=== PATIENT | female | born 1990 | race Two or more races ===

== ENCOUNTER 2021-08-06 14:21 | Observation (INO) | payer MEDICAID ==
[2021-08-06 16:08] LABS: Hematocrit 35.7 % (36.0-46.0); Hemoglobin 12.3 g/dL (12.2-16.2); Mean Corpuscular Hemoglobin 28.8 pg (28.0-32.0); Mean Corpuscular Hgb Conc. 34.5 g/dL (32.0-36.0); Mean Corpuscular Volume 83.4 fL (80.0-100.0); Red Blood Cells 4.27 10^6/uL (4.0-5.20); Red Cell Distribution Width 13.8 % (11.8-14.3); White Blood Cell 9.4 10^3/uL (4.4-10.8)
[2021-08-06 16:16] LABS: Basophils % (manual) 0 (0.0-2.0); Blast Cells 0; Eosinophils % (manual) 0 (0-7); Metamyelocytes % 0; Myelocytes % 0; Promyelocytes % 0; Reactive Lymphocytes 0
[2021-08-06 16:20] LABS: Urine Bacteria NONE SEEN /hpf (None Seen); Urine Blood Negative /uL (Negative); Urine Mucus FEW (None Seen); Urine Specific Gravity 1.019 (1.001-1.035); Urine WBC 3 /hpf (0 - 5)
[2021-08-06 16:28] LABS: Albumin 2.5 g/dL (3.4-5.0); Calcium 8.7 mg/dL (8.5-10.1); Potassium 3.8 mmol/L (3.5-5.1)
[2021-08-06 16:30] LABS: Protein, Urine 18.3 mg/dL (0.0-11.9)
[2021-08-06 16:31] LABS: BUN/Creatinine Ratio 9.8; Bilirubin, Total 0.1 mg/dL (0.2-1.0); Total Protein 6.9 g/dL (6.4-8.2); Uric Acid 3.5 mg/dL (2.6-6.0)
[2021-08-06 16:40] LABS: INR 0.91 (0.9-1.15); Partial Thromboplastin Time 25.4 sec (23.6-33.0)
[2021-08-06] MEDS ORDERED: PREN27TA7 OR (17:01)
[2021-08-06 17:50] LABS: Band Neutrophils % (manual) 2; Lymphocytes % (manual) 13 (10.0-50.0); Monocytes % (manual) 6 (0-12)
== END 2021-08-06 17:20 | disposition home or self-care (01) ==
LOC: LDRP 14:21
PROVIDERS: ADMIT Obstetrics & Gynecology Obstetrics; ATTEND Obstetrics & Gynecology Obstetrics
DX: O13.3 Gestational [pregnancy-induced] hypertension without significant proteinuria, third trimester (principal); Z3A.31 31 weeks gestation of pregnancy
CPT/HCPCS: 36415; 59025; 80053; 81001; 81002; 82570; 84156; 84550; 85007; 85027; 85610; 85730; 94760; G0378

== ENCOUNTER 2021-08-20 14:05 | Emergency (ER) | payer MEDICAID ==
[~2021-08-20] VITALS: Ht 157.5 cm; Wt 77.1 kg
[~2021-08-20 14:05] MED LIST: PREN27TA7 OR
[2021-08-20 14:16] VITALS: BP 127/79
== END 2021-08-20 16:47 | disposition left against medical advice (07) ==
LOC: ER 14:05
DX: O26.893 Other specified pregnancy related conditions, third trimester (principal); J02.9 Acute pharyngitis, unspecified; R50.9 Fever, unspecified; Z3A.01 Less than 8 weeks gestation of pregnancy; Z3A.33 33 weeks gestation of pregnancy

== ENCOUNTER 2024-03-21 10:09 | Emergency (ER) | payer MEDICAID ==
[~2024-03-21] VITALS: Ht 152.4 cm; Wt 79.5 kg
[2024-03-21] MEDS ORDERED: ALBUAER3 IN (10:32)
[2024-03-21] MEDS ORDERED: METH4PAK PO (10:32)
[2024-03-21] MEDS ORDERED: AZIT1POW PO (10:32)
--- NOTE | 2024-03-21 10:34 | ED.PDOC ---
History of Present Illness HPI Comments 33-year-old female who comes with chief complaint of cough that was productive in nature. The patient states that there has been some yellow phlegm since the 13 of March. She has also had a fever somewhat off and on. There has been some mild chills. Upon arrival, the patient has normal vital signs but is still coughing. The patient also has some other family members at home who are sick. Chief Complaint: Flu like Time Seen by MD: 10:24 Reviewed Notes: Nurses Notes, Medications, Allergies (No allergies to medications) Allergies: Coded Allergies: NO KNOWN ALLERGIES (Unverified , 08/20/21) Home Meds Active Scripts Albuterol Sulfate (VENTOLIN MDI) 90 Mcg Ih, 90 MCG IN Q8HP PRN for 5 Days, #1 I NH Prov:SARA KIM MD 03/21/24 Methylprednisolone (Medrol Dosepak) 4 Mg Willie, 4 MG PO UD, #21 TAB UAD Prov:SARA KIM MD 03/21/24 Azithromycin (Zithromax) 1 Gm Pow, 1 PACK PO ONCE, #1 PACK Prov:SARA KIM MD 03/21/24 Reported Medications Vit W/ Ferrous Fumara () 1 Tab Tab, 1 TAB OR, TAB 08/06/21 Information Source: Patient Mode of Arrival: Ambulatory Severity: Mild Timing: Days Duration: Since onset Prehospital treatment: None Associated signs and symptoms Associated fever with a productive cough Past Medical History PAST MEDICAL HISTORY: HTN Surgical History: Denies all surgeries COUNTY AGENT History: No Pertinent COUNTY AGENT History Family History Family History: No family hx of Cancer, No family hx of DM, No family hx of Heart marie Social History Smoker: Non-Smoker Alcohol: Denies ETOH Use Drugs: Denies Drug Use Lives In: Home Constitutional: reports: chills, fever; denies: diaphoresis, fatigue, malaise, sweats, weakness, others EENTM: denies: blurred vision, double vision, ear bleeding, ear discharge, ear drainage, ear pain, ear ringing, eye pain, eye redness, hearing loss, mouth pain, mouth swelling, nasal discharge, nose bleeding, nose congestion, nose pain, photophobia, tearing, throat pain, throat swelling, voice changes, others Respiratory: reports: cough; denies: hemoptysis, orthopnea, SOB at rest, shortness of breath, SOB with excertion, stridor, wheezing, others Cardiovascular: denies: chest pain, dizzy spells, diaphoresis, Dyspnea on exertion, edema, irregular heart beat, left arm pain, lightheadedness, palpitations, PND, syncope, others Gastrointestinal: denies: abdomen distended, abdominal pain, blood streaked bowels, constipated, diarrhea, dysphagia, difficulty swallowing, hematemesis, melena, nausea, poor appetite, poor fluid intake, rectal bleeding, rectal pain, vomiting, others Genitourinary: denies: abnormal vagina bleeding, burning, dyspareunia, dysuria, flank pain, frequency, hematuria, incontinence, pain, , vagina discharge, urgency, others Neurological: denies: dizziness, fainting, headache, left sided numbness, left sided weakness, numbness, paresthesia, pre-existing deficit, right sided numbness, right sided weakness, seizure, speech problems, tingling, tremors, weakness, others Musculoskeletal: denies: back pain, gout, joint pain, joint swelling, muscle pain, muscle stiffness, neck pain, others Integumetry: denies: bruises, change in color, change in hair/nails, dryness, laceration, lesions, lumps, rash, wounds, others Allergic/Immunocompromised: denies: Difficulty Healing, Frequent Infections, Hives, Itching, others Hematologic/Lymphatic: denies: anemia, blood clots, easy bleeding, easy bruising, swollen glands, others Endocrine: denies: excessive hunger, excessive sweating, excessive thirst, excessive urination, flushing, intolerance to cold, intolerance to heat, unexplained weight gain, unexplained weight loss, others Psychiatric: denies: anxiety, bipolar disorder, depression, hopeless, panic disorder, schizophrenia, sleepless, suicidal, others Physical Exam General Appearance: No Apparent Distress HEENT: Normal ENT Inspection, Pharynx Normal, TMs Normal Neck: Full Range of Motion, Non-Tender, Normal, Normal Inspection Respiratory: Chest Non-Tender, Lungs Clear, No Accessory Muscle Use, No Respiratory Distress, Normal Breath Sounds Cardiovascular: No Edema, No JVD, No Murmur, No Gallop, Normal Peripheral Pulses, Regular Rate/Rhythm Breast Exam: Deferred Gastrointestinal: No Organomegaly, Non Tender, No Pulsatile Mass, Normal Bowel Sounds, Soft Genitalia: Deferred Pelvic: Deferred Rectal: Deferred Extremities: No calf tenderness, Normal capillary refill, Normal inspection, Normal range of motion, Non-tender, No pedal edema Musculoskeletal : Apperance: Normal Neurologic: Alert, general technician II-XII nml as Tested, No Motor Deficits, Normal Affect, Normal Mood, No Sensory Deficits Cerebellar Function: Normal Reflexes: Normal Skin: Dry, Normal Color, Warm Lymphatic: No Adenopathy Was a procedure done? Was a procedure done?: No Differential Dx Considerations may include: Bronchitis, URI, influenza X-Ray, Labs, Meds, VS Vital Signs Date Time Temp Pulse Resp B/P (MAP) Pulse Ox O2 Delivery O2 Flow Rate FiO2 03/21/24 10:30 98.2 89 18 138/101 (113) 98 The patient is being discharged with a diagnosis of acute bronchitis The patient has eloped from the department prior to getting the x-ray done. The patient will follow up with the primary care doctor We did send in a prescription for the patient Images Reviewed?: Images reviewed and evaluated by me Time of 1ST Reevaluation: 10:34 Reevaluation 1ST: Unchanged Patient Education/Counseling: Diagnosis, Treatment, Prognosis, Need For Follow Up Family Education/Counseling: No Family Present Departure 1 Departure Time of Disposition: 10:34 Impression: Primary Impression: Acute bronchitis Qualified Codes: J20.9 - Acute bronchitis, unspecified Disposition: HOME / SELF CARE / HOMELESS Condition: Fair e-Prescriptions Albuterol Sulfate (VENTOLIN MDI) 90 Mcg Ih 90 MCG IN Q8HP PRN for 5 Days, #1 INH Prov: SARA KIM MD 03/21/24 Methylprednisolone (Medrol Dosepak) 4 Mg Willie 4 MG PO UD, #21 TAB UAD Prov: SARA KIM MD 03/21/24 Azithromycin (Zithromax) 1 Gm Pow 1 PACK PO ONCE, #1 PACK Prov: SARA KIM MD 03/21/24 Discharged With: Self Critical Care Note Critical Care Time?: No Stability Stability form required: No Heart Score Heart Score: Heart Score Response (Comments) Value History N/A 0 EKG N/A 0 Age N/A 0 Risk Factors N/A 0 Troponin N/A 0 Total 0 SARA KIM MD Mar 21, 2024 10:34
[2024-03-21 12:03] VITALS: BP 132/72; PULSE 74; RESP 16; TEMP 98.2; O2SAT 98
== END 2024-03-21 12:06 | disposition home or self-care (01) ==
LOC: ER 10:09
DX: J20.9 Acute bronchitis, unspecified (principal); I10 Essential (primary) hypertension; Z79.899 Other long term (current) drug therapy

== ENCOUNTER 2024-08-23 10:23 | Observation (INO) | payer MEDICAID ==
[~2024-08-23] VITALS: Ht 162.6 cm; Wt 82.1 kg
[~2024-08-23 10:23] MED LIST changes: +ALBUAER3 IN; +AZIT1POW PO; +METH4PAK PO
--- NOTE | 2024-08-23 11:09 | DVH ---
LIMITED OB ULTRASOUND > 14 WKS: HISTORY: Chronic HTN TECHNIQUE: Multiple real-time grayscale images of the gravid uterus with duplex Doppler color flow an d M-mode spectral analysis. TRANSDUCER: Transabdominal FINDINGS: Cephalic presentation Fundal placenta. Heart rate: 149 beats per minute RIKKI 12.35. IMPRESSION: as above
[2024-08-23] MEDS: TERBUTALINE SULFATE 1 MG/ML 1ML VIAL SC SCH (12:00)
--- NOTE | 2024-08-23 12:14 | DVH ---
LIMITED OB ULTRASOUND > 14 WKS: HISTORY: cervical length only TECHNIQUE: Multiple real-time grayscale images of the gravid uterus to evaluate cervix length. TRANSDUCER: Transvaginal. FINDINGS/IMPRESSION: Cervix appears closed and measures 4.1 cm at this time. Refer to recent prior report for further eval uation.
--- NOTE | 2024-08-23 23:22 | DVHDS2 ---
Discharge Summary Date of Admission Aug 23, 2024 at 10:32 Date of Discharge: Aug 23, 2024 Admitting Diagnosis Thirty and 4 7th weeks chronic hypertension Brief Hx & Hospital Course: NST performed reassuring heart tones Condition at Discharge: Good Final Diagnosis/Problems List Chronic hypertension 30+ weeks Discharge Disposition: Home Discharge Instruct/Medications Diet: Regular Activity: Light activity Activity comment: Kick counseling precautions Follow Up/Referral: As scheduled Discharge Statement: "Patient was advised to return to the ER or call 911 if any headaches, dizziness, shortness of breath, chest pain, abdominal pain, bleeding, fevers, or worsening of medical condition. Patient was counseled about treatment plan, medications, possible side effects, patientverbalized understanding. All questions were answered to the best of my ability. This discharge took greater then 30 minutes in planning, reviewing documentation, counseling the patient, and discussing with other team members." ASSESSMENT ASSESSMENT Assessment Visit Coding OBGYN Date of Service: Aug 23, 2024 Billing Provider: BERTHA DUNCAN DO HOT CAR OPERATOR Common Visit Codes: 49135-JVV/OBS SAME DATE (LOW), 71593-AZH/OBS SAME DATE (MOD), 04060-DWZ/OBS SAME DATE (HIGH) HOT CAR OPERATOR Procedure Codes: 69909-17- NON-STRESS TEST BERTHA DUNCAN DO Aug 23, 2024 23:22
== END 2024-08-23 12:44 | disposition home or self-care (01) ==
LOC: LDRP 10:23 → UNDOADMOB 10:23 → LDRP 10:32 → UNDODISOB 12:44
PROVIDERS: ADMIT Obstetrics & Gynecology; ATTEND Obstetrics & Gynecology
DX: O13.3 Gestational [pregnancy-induced] hypertension without significant proteinuria, third trimester (principal); O26.893 Other specified pregnancy related conditions, third trimester; R51.9 Headache, unspecified; R11.0 Nausea; Z3A.30 30 weeks gestation of pregnancy; Z79.899 Other long term (current) drug therapy
CPT/HCPCS: 59025; 76815; 81002; 94760; 96372; G0378; J3105

== ENCOUNTER 2024-08-26 13:04 | Observation (INO) | payer MEDICAID ==
[~2024-08-26] VITALS: Ht 154.9 cm; Wt 82.1 kg
[2024-08-26] MEDS: TERBUTALINE SULFATE 1 MG/ML 1ML VIAL SC SCH (17:51)
[2024-08-26] MEDS ORDERED: NIFE10CA52 PO (20:02)
--- NOTE | 2024-08-31 14:31 | DVHDS2 ---
Physician Discharge Progress N Final Diagnosis: chtn 31 wks Operations or Procedures: Operations or Procedures nst reactive reviewed ,sono Condition on Discharge: Good Disposition: Home Discharge Instructions: Diet: Regular Activity: Light activity Medications: na Follow Up Care: Specialist: 2d Discharge Statement: "Patient was advised to return to the ER or call 911 if any headaches, dizziness, shortness of breath, chest pain, abdominal pain, bleeding, fevers, or worsening of medical condition. Patient was counseled about treatment plan, medications, possible side effects, patientverbalized understanding. All questions were answered to the best of my ability. This discharge took greater then 30 minutes in planning, reviewing documentation, counseling the patient, and discussing with other team members." Visit Coding OBGYN Date of Service: Aug 26, 2024 Billing Provider: REAGAN HARTLEY DO ELECTRONIC INTELLIGENCE OFFICER Common Visit Codes: 54139-RQILMUU OBS CARE (HIGH) ELECTRONIC INTELLIGENCE OFFICER Procedure Codes: 98103-60- NON-STRESS TEST REAGAN HARTLEY DO Aug 31, 2024 14:31
== END 2024-08-26 20:09 | disposition home or self-care (01) ==
LOC: LDRP 16:10
PROVIDERS: ADMIT Obstetrics & Gynecology; ATTEND Obstetrics & Gynecology
DX: O13.3 Gestational [pregnancy-induced] hypertension without significant proteinuria, third trimester (principal); Z3A.30 30 weeks gestation of pregnancy; Z79.899 Other long term (current) drug therapy; Z98.890 Other specified postprocedural states
CPT/HCPCS: 59025; 81002; 94760; 96372; G0378; J3105

== ENCOUNTER 2024-08-30 13:59 | Observation (INO) | payer MEDICAID ==
[~2024-08-30] VITALS: Ht 160 cm; Wt 82.1 kg
[~2024-08-30 13:59] MED LIST changes: +NIFE10CA52 PO
[2024-08-30 17:09] LABS: Basophils # (auto) 0 10 ^3/uL (0-0.2); Basophils % (auto) 0.1 % (0.0-2.0); Eosinophils # (auto) 0.1 10 ^3/uL (0-0.8); Eosinophils % (auto) 1.5 % (0.0-7.0); Hematocrit 35.7 % (36.0-46.0); Hemoglobin 12.3 g/dL (12.2-16.2); Lymphocytes % (auto) 24.2 % (10.0-50.0); Mean Corpuscular Hemoglobin 28.5 pg (28.0-32.0); Mean Corpuscular Hgb Conc. 34.5 g/dL (32.0-36.0); Mean Corpuscular Volume 82.5 fL (80.0-100.0); Monocytes # (auto) 0.6 10 ^3/uL (0-1.3); Neutrophils # (auto) 5.4 10 ^3/uL (1.6-8.6); Neutrophils % (auto) 66.2 % (37.0-80.0); Platelet Count (auto) 287 10^3/uL (140-450); Red Blood Cells 4.33 10^6/uL (4.0-5.20); Red Cell Distribution Width 14.1 % (11.8-14.3); White Blood Cell 8.1 10^3/uL (4.4-10.8)
[2024-08-30 17:23] LABS: INR 0.9 (0.9-1.15); Partial Thromboplastin Time 24.9 SEC (24.5-34.5); Prothrombin Time 9.6 sec (9.3-11.8)
[2024-08-30 17:27] LABS: Alanine Aminotransferase 16 U/L (7-40); Albumin 4.1 g/dL (3.2-4.8); Anion Gap 10 (5-15); Aspartate Aminotransferase 21 U/L (<34); Calcium 9.1 mg/dL (8.7-10.4); Carbon Dioxide 22 mmol/L (20-31); Chloride 106 mmol/L (98-107); Glucose 98 mg/dL (74-106); Potassium 3.9 mmol/L (3.5-5.1); Sodium 138 mmol/L (136-145); Total Protein 6.6 g/dL (5.7-8.2); Uric Acid 3.7 mg/dL (3.1-7.8)
[2024-08-30] MEDS: BETAMETHASONE ACET (30mg/5ml) 5ml Vial 6mg/ml IM ONE (17:34)
[2024-08-30 17:38] LABS: Urine Bacteria FEW /hpf (None Seen); Urine Blood Negative /uL (Negative); Urine Clarity Clear (Clear); Urine Color Light-Yellow (Yellow); Urine Protein, UAD Negative (Negative); Urine Specific Gravity 1.009 (1.001-1.035); Urine Squamous Epithelial Cell FEW /hpf (<5); Urine Urobilinogen Normal (Negative); Urine WBC 3 /HPF (0-5); Urine pH 6.5 (5.0-9.0)
[2024-08-30 17:40] LABS: Alkaline Phosphatase 120 U/L (46-116); Bilirubin, Total 0.3 mg/dL (0.2-1.0); Blood Urea Nitrogen < 5 mg/dL (9-23)
[2024-08-30 17:41] LABS: Creatinine, Urine 51.37 mg/dL (30.0-125.0); Urine Protein/Creatinine Ratio 0.12
[2024-08-30] MEDS ORDERED: NIFE10CA52 PO (17:48)
[2024-08-30 17:51] LABS: Protein, Urine < 6.0 mg/dL (1-14)
[2024-08-30] MEDS ORDERED: TERBUTALINE SULFATE 1 MG/ML 1ML VIAL SC ONE (18:15)
--- NOTE | 2024-08-30 18:46 | DVH ---
LIMITED OB ULTRASOUND > 14 WKS: HISTORY: labor TECHNIQUE: Multiple real-time grayscale images of the gravid uterus with duplex Doppler color flow an d M-mode spectral analysis. TRANSDUCER: Transabdominal COMPARISON: US OBSTERICAL LIMITED on DOS: 08/23/24, US OBSTERICAL LIMITED on DOS: 08/23/24 FINDINGS/IMPRESSION: Cervix is closed and measures 4.3 cm Cephalic Presentation Fundal Placenta without previa or abruption.
[2024-08-30] MEDS: TERBUTALINE SULFATE 1 MG/ML 1ML VIAL SC SCH (18:56)
--- NOTE | 2024-08-31 06:19 | DVHDS2 ---
Discharge Summary Date of Admission Aug 30, 2024 at 16:20 Date of Discharge: Aug 30, 2024 Admitting Diagnosis 31 wks nst Labs/Diagnostic Data: Laboratory Results Test 08/30/24 16:47 08/30/24 16:30 08/30/24 16:28 White Blood Count 8.1 10^3/uL (4.4-10.8) Red Blood Count 4.33 10^6/uL (4.0-5.20) Hemoglobin 12.3 g/dL (12.2-16.2) Hematocrit 35.7 % (36.0-46.0) Mean Corpuscular Volume 82.5 fL (80.0-100.0) Mean Corpuscular Hemoglobin 28.5 pg (28.0-32.0) Mean Corpuscular Hemoglobin Concent 34.5 g/dL (32.0-36.0) Red Cell Distribution Width 14.1 % (11.8-14.3) Platelet Count 287 10^3/uL (140-450) Mean Platelet Volume 7.3 fL (6.9-10.8) Neutrophils (%) (Auto) 66.2 % (37.0-80.0) Lymphocytes (%) (Auto) 24.2 % (10.0-50.0) Monocytes (%) (Auto) 8.0 % (0.0-12.0) Eosinophils (%) (Auto) 1.5 % (0.0-7.0) Basophils (%) (Auto) 0.1 % (0.0-2.0) Neutrophils # (Auto) 5.4 10 ^3/uL (1.6-8.6) Lymphocytes # (Auto) 2.0 10 ^3/uL (0.4-5.4) Monocytes # (Auto) 0.6 10 ^3/uL (0-1.3) Eosinophils # (Auto) 0.1 10 ^3/uL (0-0.8) Basophils # (Auto) 0 10 ^3/uL (0-0.2) Nucleated Red Blood Cells 0.0 % Prothrombin Time 9.6 sec (9.3-11.8) Prothrombin Time INR 0.90 (0.9-1.15) Activated Partial Thromboplast Time 24.9 SEC (24.5-34.5) Sodium Level 138 mmol/L (136-145) Potassium Level 3.9 mmol/L (3.5-5.1) Chloride Level 106 mmol/L (98-107) Carbon Dioxide Level 22 mmol/L (20-31) Anion Gap 10 (5-15) Blood Urea Nitrogen < 5 mg/dL (9-23) Creatinine 0.50 mg/dL (0.550-1.02) Glomerular Filtration Rate Calc 127 mL/min (>90) BUN/Creatinine Ratio 10.0 (10.0-20.0) Serum Glucose 98 mg/dL (74-106) Uric Acid 3.7 mg/dL (3.1-7.8) Calcium Level 9.1 mg/dL (8.7-10.4) Total Bilirubin 0.3 mg/dL (0.2-1.0) Aspartate Amino Transferase (AST) 21 U/L (<34) Alanine Aminotransferase (ALT) 16 U/L (7-40) Alkaline Phosphatase 120 U/L (46-116) Total Protein 6.6 g/dL (5.7-8.2) Albumin 4.1 g/dL (3.2-4.8) Urine Color Light-yellow (Yellow) Urine Clarity Clear (Clear) Urine pH 6.5 (5.0-9.0) Urine Specific Loman 1.009 (1.001-1.035) Urine Protein Negative (Negative) Urine Ketones Trace (Negative) Urine Blood Negative /uL (Negative) Urine Nitrite Negative (Negative) Urine Bilirubin Negative (Negative) Urine Urobilinogen Normal mg/dL (Negative) Urine Leukocyte Esterase Negative /uL (Negative) Urine RBC 1 /hpf (0 - 4) Urine Microscopic WBC 3 /HPF (0-5) Urine Squamous Epithelial Cells Few /hpf (<5) Urine Bacteria Few /hpf (None Seen) Urine Glucose Normal mg/dL (Normal) Urine Creatinine 51.37 mg/dL (30.0-125.0) Urine Protein/Creatinine Ratio 0.12 Urine Total Protein < 6.0 mg/dL (1-14) Other Laboratory Tests 08/30/24 16:47 Brief Hx & Hospital Course: 31 weeks rule out labor Condition at Discharge: Good Final Diagnosis/Problems List reasuring fht no complications Discharge Disposition: Home Discharge Instruct/Medications Diet: Regular Diet comment: Monitor sodium intake Activity: Light activity Activity comment: kick counts labor precautions Follow Up/Referral: as scheduled Discharge Statement: "Patient was advised to return to the ER or call 911 if any headaches, dizziness, shortness of breath, chest pain, abdominal pain, bleeding, fevers, or worsening of medical condition. Patient was counseled about treatment plan, medications, possible side effects, patientverbalized understanding. All questions were answered to the best of my ability. This discharge took greater then 30 minutes in planning, reviewing documentation, counseling the patient, and discussing with other team members." ASSESSMENT ASSESSMENT Assessment Visit Coding OBGYN Date of Service: Aug 30, 2024 Billing Provider: BERTHA DUNCAN DO DYNAMOMETER REPAIRER Common Visit Codes: 72896-SUT/OBS SAME DATE (LOW), 31490-ADZ/OBS SAME DATE (MOD), 49810-IPD/OBS SAME DATE (HIGH) DYNAMOMETER REPAIRER Procedure Codes: 20806-48- NON-STRESS TEST BERTHA DUNCAN DO Aug 31, 2024 06:19
== END 2024-08-30 21:24 | disposition home or self-care (01) ==
LOC: LDRP 16:20 → UNDOADMOB 16:20 → LDRP 16:31 → UNDODISOB 21:24
PROVIDERS: ADMIT Obstetrics & Gynecology; ATTEND Obstetrics & Gynecology
DX: O60.03 Preterm labor without delivery, third trimester (principal); O13.3 Gestational [pregnancy-induced] hypertension without significant proteinuria, third trimester; Z98.890 Other specified postprocedural states; Z79.899 Other long term (current) drug therapy; Z3A.31 31 weeks gestation of pregnancy
CPT/HCPCS: 36415; 59025; 76815; 80053; 81001; 81002; 82570; 84156; 84550; 85025; 85610; 85730; 94762; 96372; G0378; J0702; J3105

== ENCOUNTER 2024-08-31 16:40 | Observation (INO) | payer MEDICAID ==
[~2024-08-31 16:40] MED LIST changes: -ALBUAER3 IN; -AZIT1POW PO; -METH4PAK PO
[2024-08-31] MEDS: BETAMETHASONE ACET (30mg/5ml) 5ml Vial 6mg/ml IM ONE (17:25)
--- NOTE | 2024-08-31 18:04 | DVHDS2 ---
Physician Discharge Progress N Final Diagnosis: testing for CHTN/PTL Operations or Procedures: Operations or Procedures 33yo IUP@31.5wks VSS NST reactive (last continuous 20 minutes) No UCs on TOCO Second dose of betamethasone 12mg IM given FKC/PTL precautions reviewed. Dr. Vaughan consulted, agrees with POC. Condition on Discharge: Stable Disposition: Home Discharge Instructions: Diet: Regular Activity: See Comment Activity comment: pelvic rest Medications: see med list Follow Up Care: Specialist: f/u in 3 days Discharge Statement: "Patient was advised to return to the ER or call 911 if any headaches, dizziness, shortness of breath, chest pain, abdominal pain, bleeding, fevers, or worsening of medical condition. Patient was counseled about treatment plan, medications, possible side effects, patientverbalized understanding. All questions were answered to the best of my ability. This discharge took greater then 30 minutes in planning, reviewing documentation, counseling the patient, and discussing with other team members." Visit Coding OBGYN Date of Service: Aug 31, 2024 Billing Provider: KEYSHAWN KING CNM HIGH SCHOOL ASSISTANT PRINCIPAL Common Visit Codes: 27729-FCRTWJJ OBS CARE (HIGH) HIGH SCHOOL ASSISTANT PRINCIPAL Procedure Codes: 21668-23- NON-STRESS TEST KEYSHAWN KING CNM Aug 31, 2024 18:04
== END 2024-08-31 19:47 | disposition home or self-care (01) ==
LOC: LDRP 16:40
PROVIDERS: ADMIT Obstetrics & Gynecology; ATTEND Obstetrics & Gynecology
DX: O13.3 Gestational [pregnancy-induced] hypertension without significant proteinuria, third trimester (principal); O60.03 Preterm labor without delivery, third trimester; Z98.890 Other specified postprocedural states; Z79.899 Other long term (current) drug therapy; Z3A.31 31 weeks gestation of pregnancy
CPT/HCPCS: 59025; 81002; 94762; 96372; G0378

== ENCOUNTER 2024-09-03 14:09 | Observation (INO) | payer MEDICAID ==
--- NOTE | 2024-09-03 17:40 | DVH ---
BIOPHYSICAL PROFILE HISTORY: CHTN PTL TECHNIQUE: Multiple real-time grayscale sonographic images through the gravid uterus of the fetus wi th duplex Doppler color flow. FINDINGS: BIOPHYSICAL PROFILE: breathing score: 2 movement score: 2 tone score: 2 Quantitative RIKKI score: 2 Total score: 8 out of 8 The lie is cephalic. Placenta posteriorly positioned. RIKKI 17.2 cm. heart rate of 136 be ats per minute. IMPRESSION: Biophysical profile score: 8 out of 8
--- NOTE | 2024-09-08 07:25 | DVHDS2 ---
Physician Discharge Progress N Final Diagnosis: chtn,ptl 32 wks Operations or Procedures: Operations or Procedures nst reactive reviwed,sono Condition on Discharge: Good Disposition: Home Discharge Instructions: Diet: Regular Activity: No Restrictions, As Tolerated Medications: na Follow Up Care: Specialist: 1d Discharge Statement: "Patient was advised to return to the ER or call 911 if any headaches, dizziness, shortness of breath, chest pain, abdominal pain, bleeding, fevers, or worsening of medical condition. Patient was counseled about treatment plan, medications, possible side effects, patientverbalized understanding. All questions were answered to the best of my ability. This discharge took greater then 30 minutes in planning, reviewing docu mentation, counseling the patient, and discussing with other team members." Visit Coding OBGYN Date of Service: Sep 03, 2024 Billing Provider: REAGAN HARTLEY DO DIRECTOR INDEPENDENT Common Visit Codes: 16973-FAQQUBJ OBS CARE (HIGH) DIRECTOR INDEPENDENT Procedure Codes: 61822-14- NON-STRESS TEST REAGAN HARTLEY DO Sep 08, 2024 07:25
== END 2024-09-03 18:23 | disposition home or self-care (01) ==
LOC: LDRP 16:45
PROVIDERS: ADMIT Obstetrics & Gynecology; ATTEND Obstetrics & Gynecology
DX: O13.3 Gestational [pregnancy-induced] hypertension without significant proteinuria, third trimester (principal); O60.03 Preterm labor without delivery, third trimester; Z3A.32 32 weeks gestation of pregnancy; Z79.899 Other long term (current) drug therapy; Z98.890 Other specified postprocedural states
CPT/HCPCS: 59025; 76819; 81002; 94760; G0378

== ENCOUNTER 2024-09-11 07:53 | Observation (INO) | payer MEDICAID ==
[~2024-09-11 07:53] MED LIST changes: +PREN-96 PO
[2024-09-11 14:18] LABS: Basophils # (auto) 0 10 ^3/uL (0-0.2); Basophils % (auto) 0.5 % (0.0-2.0); Eosinophils # (auto) 0.1 10 ^3/uL (0-0.8); Eosinophils % (auto) 0.9 % (0.0-7.0); Hematocrit 38.8 % (36.0-46.0); Hemoglobin 13.2 g/dL (12.2-16.2); Lymphocytes # (auto) 1.8 10 ^3/uL (0.4-5.4); Lymphocytes % (auto) 18.5 % (10.0-50.0); Mean Corpuscular Hemoglobin 28.4 pg (28.0-32.0); Mean Corpuscular Hgb Conc. 34.1 g/dL (32.0-36.0); Mean Corpuscular Volume 83.3 fL (80.0-100.0); Monocytes # (auto) 0.8 10 ^3/uL (0-1.3); Monocytes % (auto) 7.8 % (0.0-12.0); Neutrophils # (auto) 7.1 10 ^3/uL (1.6-8.6); Neutrophils % (auto) 72.3 % (37.0-80.0); Platelet Count (auto) 315 10^3/uL (140-450); Red Blood Cells 4.66 10^6/uL (4.0-5.20); Red Cell Distribution Width 14.2 % (11.8-14.3); White Blood Cell 9.8 10^3/uL (4.4-10.8)
[2024-09-11 14:21] LABS: Protein, Urine 15.9 mg/dL (1-14)
[2024-09-11 14:24] LABS: Creatinine, Urine 142.79 mg/dL (30.0-125.0); Urine Protein/Creatinine Ratio 0.11
[2024-09-11 14:30] LABS: Urine Bacteria FEW /hpf (None Seen); Urine Blood Negative /uL (Negative); Urine Clarity Clear (Clear); Urine Color Yellow (Yellow); Urine Protein, UAD Negative (Negative); Urine Specific Gravity 1.023 (1.001-1.035); Urine Squamous Epithelial Cell FEW /hpf (<5); Urine Urobilinogen 2 mg/dL (Negative); Urine WBC 2 /HPF (0-5); Urine pH 6.5 (5.0-9.0)
[2024-09-11 14:37] LABS: INR 0.9 (0.9-1.15); Partial Thromboplastin Time 24.4 SEC (24.5-34.5); Prothrombin Time 9.6 sec (9.3-11.8)
[2024-09-11 14:44] LABS: Alanine Aminotransferase 16 U/L (7-40); Albumin 4.3 g/dL (3.2-4.8); Anion Gap 11 (5-15); Aspartate Aminotransferase 21 U/L (<34); BUN/Creatinine Ratio 9.1 (10.0-20.0); Calcium 9.3 mg/dL (8.7-10.4); Carbon Dioxide 24 mmol/L (20-31); Chloride 104 mmol/L (98-107); Glucose 87 mg/dL (74-106); Potassium 4.1 mmol/L (3.5-5.1); Sodium 139 mmol/L (136-145); Total Protein 6.9 g/dL (5.7-8.2); Uric Acid 4.5 mg/dL (3.1-7.8)
[2024-09-11] MEDS ORDERED: URSO300C2 PO (14:46)
[2024-09-11 14:51] LABS: Alkaline Phosphatase 162 U/L (46-116); Bilirubin, Total 0.3 mg/dL (0.2-1.0); Blood Urea Nitrogen 6 mg/dL (9-23)
--- NOTE | 2024-09-11 15:52 | DVH ---
BIOPHYSICAL PROFILE HISTORY: CHTN/PTL TECHNIQUE: Multiple transabdominal and transvaginal real-time grayscale sonographic images through t he gravid uterus of the fetus with duplex Doppler color flow and M-mode spectral analysis FINDINGS: BIOPHYSICAL PROFILE: breathing score: 2 movement score: 2 tone score: 2 Quantitative RIKKI score: 2 (RIKKI: 14.9 Cm.) Total score: 8/8 The cervix 3.21 cm and appears closed Single live fetus in cephalic presentation. heart rate 137 beats per minute. Posterior Grade 2 placenta without previa or abruption Single live fetus at 33 weeks 2 days Biophysical profile score 2/2 corresponding to an LEVAR of 10/28/2024 IMPRESSION: 1. Biophysical profile score: 8/8
--- NOTE | 2024-09-12 21:30 | DVHDS2 ---
Physician Discharge Progress N Final Diagnosis: chtn,ptl,cholestasis of preg 33wks Operations or Procedures: Operations or Procedures nst reactive noted reviwed,sono Condition on Discharge: Good Disposition: Home Discharge Instructions: Diet: Regular Activity: See Comment Activity comment: pelvic rest Medications: na Follow Up Care: Specialist: 3d Discharge Statement: "Patient was advised to return to the ER or call 911 if any headaches, dizziness, shortness of breath, chest pain, abdominal pain, bleeding, fevers, or worsening of medical condition. Patient was counseled about treatment plan, medications, possible side effects, patientverbalized understanding. All questions were answered to the best of my ability. This discharge took greater then 30 minutes in planning, reviewing documentation, counseling the patient, and discussing with other team members." Visit Coding OBGYN Date of Service: Sep 11, 2024 Billing Provider: REAGAN HARTLEY DO WAGON DRILL OPERATOR Common Visit Codes: 02064-XEWCVDT INP/OBS CARE (HIGH) WAGON DRILL OPERATOR Procedure Codes: 62102-75- NON-STRESS TEST REAGAN HARTLEY DO Sep 12, 2024 21:30
== END 2024-09-11 15:30 | disposition home or self-care (01) ==
LOC: LDRP 13:00
PROVIDERS: ADMIT Obstetrics & Gynecology; ATTEND Obstetrics & Gynecology
DX: O26.643 Intrahepatic cholestasis of pregnancy, third trimester (principal); K83.1 Obstruction of bile duct; O60.03 Preterm labor without delivery, third trimester; O13.3 Gestational [pregnancy-induced] hypertension without significant proteinuria, third trimester; Z3A.33 33 weeks gestation of pregnancy; Z98.890 Other specified postprocedural states; Z79.899 Other long term (current) drug therapy
CPT/HCPCS: 36415; 59025; 76819; 80053; 81001; 81002; 82570; 84156; 84550; 85025; 85610; 85730; 94760; G0378

== ENCOUNTER 2024-09-14 15:57 | Observation (INO) | payer MEDICAID ==
[~2024-09-14 15:57] MED LIST changes: +URSO300C2 PO
--- NOTE | 2024-09-14 16:56 | DVH ---
BIOPHYSICAL PROFILE HISTORY: Kaylin, PTL, hypertension TECHNIQUE: Multiple real-time grayscale sonographic images through the gravid uterus of the fetus wi th duplex Doppler color flow. FINDINGS: BIOPHYSICAL PROFILE: breathing score: 2 movement score: 2 tone score: 2 Quantitative RIKKI score: 2 Total score: 8 out of 8 Single live intrauterine with heart rate of 153 beats per minute. Cephalic lie. Plac enta posteriorly positioned. RIKKI 17.8 cm. IMPRESSION: Biophysical profile score: 8 out of 8
[2024-09-14] MEDS ORDERED: URSOPOW XX (17:10)
[2024-09-14] MEDS ORDERED: URSO300C2 PO (17:11)
--- NOTE | 2024-09-14 22:49 | DVHDS2 ---
Physician Discharge Progress N Final Diagnosis: testing for cholestasis/PTL/chronic HTN Operations or Procedures: Operations or Procedures 33yo IUP@33.6wks VSS NST reactive FKC/PTL precautions reviewed Other Interventions Other Interventions [address] [address] Ph: [phone] DIAGNOSTIC IMAGING Diagnostic Imaging Report : [id number] Signed PATIENT: FLO COLLADOACCT: [id number] UNIT: [id number] 4 : 1990 LOC: [facility] ROOM / BED: TRIAGE2 / A AGE / SEX: 33 / F ADM STATUS: ADM IN SERVICE 1610 ORDERING PHYSICIAN: KEYSHAWN KING CNM PROCEDURE(s): BPP - BIOPHYSICAL PROFILE REASON: Kaylin, PTL, hypertension ORDER NUMBER(s): [id number], ACCESSION NUMBER(s): [id number] BIOPHYSICAL PROFILE HISTORY: Kaylin, PTL, hypertension TECHNIQUE: Multiple real-time grayscale sonographic images through the gravid uterus of the fetus with duplex Doppler color flow. FINDINGS: BIOPHYSICAL PROFILE: breathing score: 2 movement score: 2 tone score: 2 Quantitative RIKKI score: 2 Total score: 8 out of 8 Single live intrauterine with heart rate of 153 beats per minute. Cephalic lie. Placenta posteriorly positioned. RIKKI 17.8 cm. IMPRESSION: Biophysical profile score: 8 out of 8 ATED BY: ULYSSES LUIS MD DICTATED DATE/TIME: 09/14/241654 SIGNED BY: ULYSSES LUIS MD SIGNED DATE/TIME: 09/14/241654 CC: Condition on Discharge: Stable Disposition: Home Discharge Instructions: Diet: Regular Activity: No Restrictions, As Tolerated Medications: see med list Follow Up Care: Specialist: f/u in 3 days Discharge Statement: "Patient was advised to return to the ER or call 911 if any headaches, dizziness, shortness of breath, chest pain, abdominal pain, bleeding, fevers, or worsening of medical condition. Patient was counseled about treatment plan, medications, possible side effects, patientverbalized understanding. All questions were answered to the best of my ability. This discharge took greater then 30 minutes in planning, reviewing documentation, counseling the patient, and discussing with other team members." Visit Coding OBGYN Date of Service: Sep 14, 2024 Billing Provider: KEYSHAWN KING CNM CAMERA MECHANIC Common Visit Codes: 11980-JXTOIRQ OBS CARE (HIGH) CAMERA MECHANIC Procedure Codes: 09289-23- NON-STRESS TEST KEYSHAWN KING CNM Sep 14, 2024 22:49
== END 2024-09-14 17:35 | disposition home or self-care (01) ==
LOC: UNDOADMOB 15:57 → EDUNIT# 15:57 → LDRP 15:57 → UNDODISOB 17:35
PROVIDERS: ADMIT Obstetrics & Gynecology; ATTEND Obstetrics & Gynecology
DX: O26.643 Intrahepatic cholestasis of pregnancy, third trimester (principal); K83.1 Obstruction of bile duct; O13.3 Gestational [pregnancy-induced] hypertension without significant proteinuria, third trimester; O60.03 Preterm labor without delivery, third trimester; Z3A.33 33 weeks gestation of pregnancy; Z98.890 Other specified postprocedural states; Z79.899 Other long term (current) drug therapy
CPT/HCPCS: 59025; 76819; 81002; 94760; G0378

== ENCOUNTER 2024-09-17 06:28 | Observation (INO) | payer MEDICAID ==
--- NOTE | 2024-09-17 08:52 | DVH ---
BIOPHYSICAL PROFILE HISTORY: Cholestasis/CHTN Comparison Study: US BIOPHYSICAL PROFILE on DOS: 09/11/24, US BIOPHYSICAL PROFILE on DOS: 09/03/24 TECHNIQUE: Multiple real-time grayscale sonographic images through the gravid uterus of the fetus wi th duplex Doppler color flow and M-mode spectral analysis FINDINGS: BIOPHYSICAL PROFILE: breathing score: 2 movement score: 2 tone score: 2 Quantitative RIKKI score: 2 (RIKKI: 16 Cm.) Total score: 8 The cervix is not visualized Single live fetus in cephalic presentation. heart rate 141 beats per minute. Posterior placenta without previa or abruption IMPRESSION: Biophysical profile score: 8
[2024-09-17 09:44] LABS: Hematocrit 35.7 % (36.0-46.0); Hemoglobin 12.2 g/dL (12.2-16.2); Mean Corpuscular Hemoglobin 28.3 pg (28.0-32.0); Mean Corpuscular Volume 83.0 fL (80.0-100.0); Nucleated Red Blood Cells % 0.0 %
[2024-09-17 09:56] LABS: Alanine Aminotransferase 14 U/L (7-40); Albumin 3.8 g/dL (3.2-4.8); Anion Gap 12 (5-15); Bilirubin, Total 0.3 mg/dL (0.2-1.0); Calcium 9.7 mg/dL (8.7-10.4); Chloride 107 mmol/L (98-107); Potassium 3.7 mmol/L (3.5-5.1); Sodium 139 mmol/L (136-145); Total Protein 6.1 g/dL (5.7-8.2)
[2024-09-17 10:01] LABS: Alkaline Phosphatase 156 U/L (46-116); BUN/Creatinine Ratio 10.9 (10.0-20.0); Blood Urea Nitrogen < 5 mg/dL (9-23); Carbon Dioxide 20 mmol/L (20-31); Glucose 108 mg/dL (74-106)
--- NOTE | 2024-09-17 14:13 | DVHDS2 ---
Physician Discharge Progress N Final Diagnosis: CHTN,PTL,CHOLESTASIS 34WKS Operations or Procedures: Operations or Procedures NST REACTIVE REVIWED,SONO Condition on Discharge: Good Disposition: Home Discharge Instructions: Diet: Regular Activity: Light activity Medications: NA Follow Up Care: Specialist: 4D Discharge Statement: "Patient was advised to return to the ER or call 911 if any headaches, dizziness, shortness of breath, chest pain, abdominal pain, bleeding, fevers, or worsening of medical condition. Patient was counseled about treatment plan, medications, possible side effects, patientverbalized understanding. All questions were answered to the best of my ability. This discharge took greater then 30 minutes in planning, reviewing document ation, counseling the patient, and discussing with other team members." Visit Coding OBGYN Date of Service: Sep 17, 2024 Billing Provider: REAGAN HARTLEY DO ROUSTABOUT Common Visit Codes: 96151-LQNJUQM OBS CARE (HIGH) ROUSTABOUT Procedure Codes: 25065-72- NON-STRESS TEST REAGAN HARTLEY DO Sep 17, 2024 14:13
== END 2024-09-17 09:45 | disposition home or self-care (01) ==
LOC: LDRP 08:00
PROVIDERS: ADMIT Obstetrics & Gynecology; ATTEND Obstetrics & Gynecology
DX: O26.643 Intrahepatic cholestasis of pregnancy, third trimester (principal); K83.1 Obstruction of bile duct; O13.3 Gestational [pregnancy-induced] hypertension without significant proteinuria, third trimester; O60.03 Preterm labor without delivery, third trimester; Z79.899 Other long term (current) drug therapy; Z3A.34 34 weeks gestation of pregnancy; Z98.890 Other specified postprocedural states
CPT/HCPCS: 36415; 59025; 76819; 80053; 81002; 85025; 94760; G0378

== ENCOUNTER 2024-09-21 06:49 | Observation (INO) | payer MEDICAID ==
--- NOTE | 2024-09-21 16:42 | DVH ---
BIOPHYSICAL PROFILE HISTORY: Kaylin/cHTN Comparison Study: US BIOPHYSICAL PROFILE on DOS: 09/17/24, US BIOPHYSICAL PROFILE on DOS: 09/11/24, US B IOPHYSICAL PROFILE on DOS: 09/03/24 TECHNIQUE: Multiple real-time grayscale sonographic images through the gravid uterus of the fetus wi th duplex Doppler color flow and M-mode spectral analysis FINDINGS: BIOPHYSICAL PROFILE: breathing score: 2 movement score: 2 tone score: 2 Quantitative RIKKI score: 2 (RIKKI: 14 Cm.) Total score: 8 The cervix is not visualized Single live fetus in cephalic presentation. heart rate 145 beats per minute. Posterior placenta without previa or abruption IMPRESSION: Biophysical profile score: 8
--- NOTE | 2024-09-21 22:36 | DVHDS2 ---
Physician Discharge Progress N Final Diagnosis: testing for cholestasis/CHTN/PTL Operations or Procedures: Operations or Procedures 33yo IUP@34.5wks VSS NST reactive FKC/PTL/preE precautions reviewed Dr. Vaughan consulted, agrees with POC. Other Interventions Other Interventions [address] [address] Ph: [phone] DIAGNOSTIC IMAGING Diagnostic Imaging Report : [id number] Signed PATIENT: FLO COLLADOACCT: [id number] UNIT: [id number] 4 : 1990 LOC: [facility] ROOM / BED: TRIAGE2 / A AGE / SEX: 33 / F ADM STATUS: ADM IN SERVICE 1603 ORDERING PHYSICIAN: KEYSHAWN KING CNM PROCEDURE(s): BPP - BIOPHYSICAL PROFILE REASON: Kaylin/cHTN ORDER NUMBER(s): [id number], ACCESSION NUMBER(s): [id number] BIOPHYSICAL PROFILE HISTORY: Kaylin/cHTN Comparison Study: US BIOPHYSICAL PROFILE on DOS: 09/17/24, US BIOPHYSICAL PROFILE on DOS: 09/11/24, US BIOPHYSICAL PROFILE on DOS: 09/03/24 TECHNIQUE: Multiple real-time grayscale sonographic images through the gravid uterus of the fetus with duplex Doppler color flow and M-mode spectral analysis FINDINGS: BIOPHYSICAL PROFILE: breathing score: 2 movement score: 2 tone score: 2 Quantitative RIKKI score: 2 (RIKKI: 14 Cm.) Total score: 8 The cervix is not visualized Single live fetus in cephalic presentation. heart rate 145 beats per minute. Posterior placenta without previa or abruption IMPRESSION: Biophysical profile score: 8 ATED BY: ROBERT MARIO MD DICTATED DATE/TIME: 09/21/241639 SIGNED BY: ROBERT MARIO MD SIGNED DATE/TIME: 09/21/241639 CC: Condition on Discharge: Stable Disposition: Home Discharge Instructions: Diet: Regular Activity: See Comment Activity comment: pelvic rest Medications: see med list Follow Up Care: Specialist: f/u in 3 days Discharge Statement: "Patient was advised to return to the ER or call 911 if any headaches, dizziness, shortness of breath, chest pain, abdominal pain, bleeding, fevers, or worsening of medical condition. Patient was counseled about treatment plan, medications, possible side effects, patientverbalized understanding. All questions were answered to the best of my ability. This discharge took greater then 30 minutes in planning, reviewing documentation, counseling the patient, and discussing with other team members." Visit Coding OBGYN Date of Service: Sep 22, 2024 Billing Provider: KEYSHAWN KING CNM [employer] REDEVELOPMENT SITE MANAGER Common Visit Codes: 11698-[id number] OBS CARE (HIGH) [employer] REDEVELOPMENT SITE MANAGER Procedure Codes: 55608-14- NON-STRESS TEST KEYSHAWN KING CNM Sep 21, 2024 22:36
== END 2024-09-21 17:33 | disposition home or self-care (01) ==
LOC: LDRP 15:58
PROVIDERS: ADMIT Obstetrics & Gynecology; ATTEND Obstetrics & Gynecology
DX: O60.03 Preterm labor without delivery, third trimester (principal); O13.3 Gestational [pregnancy-induced] hypertension without significant proteinuria, third trimester; O26.643 Intrahepatic cholestasis of pregnancy, third trimester; K83.1 Obstruction of bile duct; Z3A.34 34 weeks gestation of pregnancy; Z79.899 Other long term (current) drug therapy; Z98.890 Other specified postprocedural states
CPT/HCPCS: 59025; 76819; 81002; 94760; G0378

== ENCOUNTER 2024-09-24 03:08 | Observation (INO) | payer MEDICAID ==
--- NOTE | 2024-09-25 15:33 | DVH ---
BIOPHYSICAL PROFILE HISTORY: carlos/chtn/ptl TECHNIQUE: Multiple transabdominal and transvaginal real-time grayscale sonographic images through t he gravid uterus of the fetus with duplex Doppler color flow and M-mode spectral analysis FINDINGS: BIOPHYSICAL PROFILE: breathing score: 2 movement score: 2 tone score: 2 Quantitative RIKKI score: 2 (RIKKI: 13.7 Cm.) Total score: 8/8 The cervix 2.96 cm Single live fetus in cephalic presentation. heart rate 127 beats per minute. Posterior Grade 2 placenta without previa or abruption Single live fetus at 35 weeks 2 days Biophysical profile score /8 corresponding to an LEVAR of 10/28/2024. IMPRESSION: 1. Biophysical profile score: 8/8
--- NOTE | 2024-09-26 22:43 | DVHDS2 ---
Discharge Summary Date of Admission Sep 25, 2024 at 13:46 Date of Discharge: Sep 25, 2024 Admitting Diagnosis 35 weeks Kaylin Chronic HTN, PTL Brief Hx & Hospital Course: US reassuring , NST performed and reactive Condition at Discharge: Good Final Diagnosis/Problems List 35 cholestasis of , PTL Discharge Disposition: Home Discharge Instruct/Medications Diet: Regular Activity: Light activity Follow Up/Referral: as scheduled Scheduled Nifedipine (Procardia Capsule), 10 MG PO Q4HR, (Reported) Vit W/ Ferrous Fumara ( One Daily), 1 TAB PO DAILY, (Reported) Ursodiol (Ursodiol), 300 MG PO BID, (Reported) Ursodiol (Ursodiol), 300 MG PO TID, (Reported) Miscellaneous Medications Nifedipine (Procardia Capsule), 10 MG PO, (Reported) Vit W/ Ferrous Fumara (), 1 TAB OR, (Reported) Discharge Statement: "Patient was advised to return to the ER or call 911 if any headaches, dizziness, shortness of breath, chest pain, abdominal pain, bleeding, fevers, or worsening of medical condition. Patient was counseled about treatment plan, medications, possible side effects, patientverbalized understanding. All questions were answered to the best of my ability. This discharge took greater then 30 minutes in planning, reviewing documentation, counseling the patient, and discussing with other team members." ASSESSMENT ASSESSMENT Assessment Visit Coding OBGYN Date of Service: Sep 25, 2024 Billing Provider: BERTHA DUNCAN DO PET STORE MERCHANDISER Common Visit Codes: 04781-[id number] INP/OBS CARE(HIGH), 81227-YUS/OBS SAME DATE (LOW), 39096-VWE/OBS SAME DATE (MOD) PET STORE MERCHANDISER Procedure Codes: 90684-95- NON-STRESS TEST BERTHA DUNCAN DO Sep 26, 2024 22:43
== END 2024-09-25 15:29 | disposition home or self-care (01) ==
LOC: LDRP 09-25 13:46
PROVIDERS: ADMIT Obstetrics & Gynecology; ATTEND Obstetrics & Gynecology
DX: O60.03 Preterm labor without delivery, third trimester (principal); O13.3 Gestational [pregnancy-induced] hypertension without significant proteinuria, third trimester; O26.643 Intrahepatic cholestasis of pregnancy, third trimester; K83.1 Obstruction of bile duct; K76.89 Other specified diseases of liver; Z3A.35 35 weeks gestation of pregnancy; Z79.899 Other long term (current) drug therapy
CPT/HCPCS: 59025; 76819; 81002; 94760; G0378

== ENCOUNTER 2024-09-28 16:47 | Observation (INO) | payer MEDICAID ==
--- NOTE | 2024-09-28 18:36 | DVH ---
BIOPHYSICAL PROFILE HISTORY: carlos/chtn/ptl TECHNIQUE: Multiple transabdominal real-time grayscale sonographic images through the gravid uterus of the fetus with duplex Doppler color flow and M-mode spectral analysis FINDINGS: BIOPHYSICAL PROFILE: breathing score: 2 movement score: 2 tone score: 2 Quantitative RIKKI score: 2 (RIKKI: 12.1 Cm.) Total score: 8 The cervix is closed with cervical length of 3 cm Single live fetus in cephalic presentation. heart rate 142 beats per minute. Grade 3 posterior placenta without previa or abruption IMPRESSION: Biophysical profile score: 8
--- NOTE | 2024-09-28 20:12 | DVHDS2 ---
Physician Discharge Progress N Final Diagnosis: testing for CHTN, PTL, cholestasis Operations or Procedures: Operations or Procedures 33yo IUP@35.5wks, +FM, denies UCs/VB VSS NST reactive FKC/PTL precautions reviewed Dr. Vaughan consulted, agrees with POC. Other Interventions Other Interventions [place] [address] Ph: [phone] DIAGNOSTIC IMAGING Diagnostic Imaging Report : [id number] Signed PATIENT: FLO GARCIAACCT: [id number] UNIT: [id number] 4 : 1990 LOC: [facility] ROOM / BED: TRIAGE1 / A AGE / SEX: 33 / F ADM STATUS: ADM IN SERVICE 50 ORDERING PHYSICIAN: FREDDY RENEE MD PROCEDURE(s): BPP - BIOPHYSICAL PROFILE REASON: carlos/chtn/ptl ORDER NUMBER(s): [id number], ACCESSION NUMBER(s): [id number] BIOPHYSICAL PROFILE HISTORY: carlos/chtn/ptl TECHNIQUE: Multiple transabdominal real-time grayscale sonographic images through the gravid uterus of the fetus with duplex Doppler color flow and M-mode spectral analysis FINDINGS: BIOPHYSICAL PROFILE: breathing score: 2 movement score: 2 tone score: 2 Quantitative RIKKI score: 2 (RIKKI: 12.1 Cm.) Total score: 8 The cervix is closed with cervical length of 3 cm Single live fetus in cephalic presentation. heart rate 142 beats per minute. Grade 3 posterior placenta without previa or abruption IMPRESSION: Biophysical profile score: 8 ATED BY: MANJU OSBORN DO DICTATED DATE/TIME: 09/28/241833 SIGNED BY: MANJU OSBORN DO SIGNED DATE/TIME: 09/28/241833 CC: Condition on Discharge: Stable Disposition: Home Discharge Instructions: Diet: Regular Activity: See Comment Activity comment: pelvic rest Medications: see med list Follow Up Care: Specialist: f/u in 3 days Discharge Statement: "Patient was advised to return to the ER or call 911 if any headaches, dizziness, shortness of breath, chest pain, abdominal pain, bleeding, fevers, or worsening of medical condition. Patient was counseled about treatment plan, medications, possible side effects, patientverbalized understanding. All questions were answered to the best of my ability. This discharge took greater then 30 minutes in planning, reviewing documentation, counseling the patient, and discussing with other team members." Visit Coding OBGYN Date of Service: Sep 28, 2024 Billing Provider: KEYSHAWN KING CNM [employer] FLOOR LAYER'S HELPER Common Visit Codes: 04877-OGLTAWB OBS CARE (HIGH) [employer]ET FLOOR LAYER'S HELPER Procedure Codes: 16421-27- NON-STRESS TEST KEYSHAWN KING CNM Sep 28, 2024 20:12
== END 2024-09-28 19:07 | disposition home or self-care (01) ==
LOC: LDRP 16:47
PROVIDERS: ADMIT Obstetrics & Gynecology; ATTEND Obstetrics & Gynecology
DX: O60.03 Preterm labor without delivery, third trimester (principal); O26.643 Intrahepatic cholestasis of pregnancy, third trimester; K83.1 Obstruction of bile duct; O13.3 Gestational [pregnancy-induced] hypertension without significant proteinuria, third trimester; Z3A.35 35 weeks gestation of pregnancy; Z98.890 Other specified postprocedural states; Z79.899 Other long term (current) drug therapy
CPT/HCPCS: 59025; 76819; 81002; 94760; G0378

== ENCOUNTER 2024-10-01 06:34 | Observation (INO) | payer MEDICAID ==
--- NOTE | 2024-10-01 17:53 | DVH ---
BIOPHYSICAL PROFILE HISTORY: cHTN,PTL,Kaylin TECHNIQUE: Multiple transabdominal real-time grayscale sonographic images through the gravid uterus of the fetus with duplex Doppler color flow and M-mode spectral analysis FINDINGS: BIOPHYSICAL PROFILE: breathing score: 2 movement score: 2 tone score: 2 Quantitative RIKKI score: 2 (RIKKI: 10.5 Cm.) Total score: 8/8 The cervix not measured Single live fetus in cephalic presentation. heart rate 162 beats per minute. Posterior Grade 3 placenta without previa or abruption Single live fetus at 36 weeks 1 day Biophysical profile score 8/8 corresponding to an LEVAR of 10/28/2024 IMPRESSION: 1. Biophysical profile score: 8/8. HS:Y
--- NOTE | 2024-10-02 07:59 | DVHDS2 ---
Physician Discharge Progress N Final Diagnosis: IUP @ 36. wks chtn,cholestasis Operations or Procedures: Operations or Procedures nst reactive reviwed,sono Condition on Discharge: Good Disposition: Home Discharge Instructions: Diet: Regular Activity: Light activity Medications: na Follow Up Care: Specialist: 3d Discharge Statement: "Patient was advised to return to the ER or call 911 if any headaches, dizziness, shortness of breath, chest pain, abdominal pain, bleeding, fevers, or worsening of medical condition. Patient was counseled about treatment plan, medications, possible side effects, patientverbalized understanding. All questions were answered to the best of my ability. This discharge took greater then 30 minutes in planning, reviewing docu mentation, counseling the patient, and discussing with other team members." Visit Coding OBGYN Date of Service: Oct 01, 2024 Billing Provider: REAGAN HARTLEY DO RESORT MANAGER Common Visit Codes: 81396-[id number] OBS CARE (HIGH) RESORT MANAGER Procedure Codes: 58141-86- NON-STRESS TEST REAGAN HARTLEY DO Oct 02, 2024 07:59
== END 2024-10-01 18:32 | disposition home or self-care (01) ==
LOC: LDRP 16:02
PROVIDERS: ADMIT Obstetrics & Gynecology; ATTEND Obstetrics & Gynecology
DX: O26.643 Intrahepatic cholestasis of pregnancy, third trimester (principal); K83.1 Obstruction of bile duct; O13.3 Gestational [pregnancy-induced] hypertension without significant proteinuria, third trimester; Z3A.36 36 weeks gestation of pregnancy; Z79.899 Other long term (current) drug therapy; Z98.890 Other specified postprocedural states
CPT/HCPCS: 59025; 76819; 81002; 94760; G0378

== ENCOUNTER 2024-10-05 07:45 | Observation (INO) | payer MEDICAID ==
--- NOTE | 2024-10-05 18:03 | DVHDS2 ---
Physician Discharge Progress N Final Diagnosis: testing for CHTN/carlos/PTL Operations or Procedures: Operations or Procedures 33yo IUP@36.5wks VSS NST reactive BPP 10/22 FKC/PTL precautions reviewed Dr. Vaughan consulted, agrees with POC. Condition on Discharge: Stable Disposition: Home Discharge Instructions: Diet: Regular Activity: No Restrictions, As Tolerated Medications: see med list Follow Up Care: Specialist: f/u twice weekly for NST/BPP Discharge Statement: "Patient was advised to return to the ER or call 911 if any headaches, dizziness, shortness of breath, chest pain, abdominal pain, bleeding, fevers, or worsening of medical condition. Patient was counseled about treatment plan, medications, possible side effects, patientverbalized understanding. All questions were answered to the best of my ability. This discharge took greater then 30 minutes in planning, reviewing documentation, counseling the patient, and discussing with other team members." Visit Coding OBGYN Date of Service: Oct 05, 2024 Billing Provider: KEYSHAWN KING CNM TRACTOR TRAILER TRUCK DRIVER Common Visit Codes: 56862-[id number] OBS CARE (HIGH) TRACTOR TRAILER TRUCK DRIVER Procedure Codes: 55133-54- NON-STRESS TEST KEYSHAWN KING CNM Oct 05, 2024 18:03
--- NOTE | 2024-10-05 18:14 | DVH ---
BIOPHYSICAL PROFILE HISTORY: Chronic hypertension, Kaylin, labor TECHNIQUE: Multiple transabdominal real-time grayscale sonographic images through the gravid uterus of the fetus with duplex Doppler color flow and M-mode spectral analysis FINDINGS: BIOPHYSICAL PROFILE: breathing score: 2 movement score: 2 tone score: 2 Quantitative RIKKI score: 2 (RIKKI: 11.72 Cm.) Total score: 8/8 The cervix 3.47 and appears closed Single live fetus in cephalic presentation. heart rate 145 beats per minute. Posterior Grade 3 placenta without previa or abruption Single live fetus at 36 weeks 5 days Biophysical profile score 8/8 corresponding to an LEVAR of 10/28/2024 Estimated weight not calculated g IMPRESSION: 1. Biophysical profile score: 8/8
== END 2024-10-05 18:08 | disposition home or self-care (01) ==
LOC: LDRP 16:47
PROVIDERS: ADMIT Obstetrics & Gynecology; ATTEND Obstetrics & Gynecology
DX: O13.3 Gestational [pregnancy-induced] hypertension without significant proteinuria, third trimester (principal); O26.643 Intrahepatic cholestasis of pregnancy, third trimester; Z3A.36 36 weeks gestation of pregnancy; Z98.890 Other specified postprocedural states; Z79.899 Other long term (current) drug therapy
CPT/HCPCS: 59025; 76819; 81002; 94760; G0378

== ENCOUNTER 2024-10-09 07:54 | Observation (INO) | payer MEDICAID ==
[2024-10-09 09:16] LABS: Urine Protein, UAD Negative (Negative)
[2024-10-09 09:16] LABS: Hematocrit 39.3 % (36.0-46.0); Hemoglobin 13.3 g/dL (12.2-16.2); Mean Corpuscular Hemoglobin 29.1 pg (28.0-32.0); Mean Corpuscular Volume 85.8 fL (80.0-100.0); Nucleated Red Blood Cells % 0.3 %
--- NOTE | 2024-10-09 09:28 | DVHDS2 ---
Physician Discharge Progress N Final Diagnosis: Cholestasis of preg IUP 37.2 wk Prior C/S Secondary Diagnosis: Encounter for NST/BPP Commentary: Commentary NST/BPP WNL Condition on Discharge: Stable Disposition: Home Discharge Instructions: Diet: Regular Activity: Light activity Medications: na Follow Up Care: Discharge Statement: "Patient was advised to return to the ER or call 911 if any headaches, dizziness, shortness of breath, chest pain, abdominal pain, bleeding, fevers, or worsening of medical condition. Patient was counseled about treatment plan, medications, possible side effects, patientverbalized understanding. All questions were answered to the best of my ability. This discharge took greater then 30 minutes in planning, reviewing doc umentation, counseling the patient, and discussing with other team members." Visit Coding OBGYN Date of Service: Oct 09, 2024 Billing Provider: ZOILA FERREIRA DO CAP LINING MACHINE OPERATOR Common Visit Codes: 01996-TWW/OBS SAME DATE (MOD) CAP LINING MACHINE OPERATOR Procedure Codes: 84838-25- NON-STRESS TEST ZOILA FERREIRA DO Oct 09, 2024 09:28
[2024-10-09 09:30] LABS: INR 0.89 (0.9-1.15); Partial Thromboplastin Time 25.4 SEC (24.5-34.5); Prothrombin Time 9.5 sec (9.3-11.8)
[2024-10-09 09:30] LABS: Amphetamine Screen, Urine Neg (NEGATIVE); Barbiturate Scree,Urine Neg (NEGATIVE); Benzodiazephine Screen, Urine Neg (NEGATIVE); Opiate Scree,Urine Neg (NEGATIVE); Phencyclidine Screen, Urine Neg (NEGATIVE)
[2024-10-09 09:31] LABS: Cannabinoid Screen, Urine Neg (NEGATIVE); Cocaine Screen, Urine Neg (NEGATIVE)
[2024-10-09 09:31] LABS: Alanine Aminotransferase 18 U/L (7-40); Albumin 4.1 g/dL (3.2-4.8); Anion Gap 10 (5-15); Calcium 9.5 mg/dL (8.7-10.4); Carbon Dioxide 22 mmol/L (20-31); Chloride 107 mmol/L (98-107); Glucose 98 mg/dL (74-106); Potassium 3.8 mmol/L (3.5-5.1); Sodium 139 mmol/L (136-145); Total Protein 6.4 g/dL (5.7-8.2)
[2024-10-09 09:32] LABS: Alkaline Phosphatase 216 U/L (46-116); BUN/Creatinine Ratio 9.1 (10.0-20.0); Bilirubin, Total 0.3 mg/dL (0.2-1.0); Blood Urea Nitrogen < 5 mg/dL (9-23)
--- NOTE | 2024-10-09 09:35 | DVH ---
BIOPHYSICAL PROFILE HISTORY: Kaylin/CHTN TECHNIQUE: Multiple transabdominal real-time grayscale sonographic images through the gravid uterus o f the fetus with duplex doppler color flow and M-mode spectral analysis FINDINGS: BIOPHYSICAL PROFILE: breathing score: 2 movement score: 2 tone score: 2 Quantitative RIKKI score: 2 (RIKKI: 8.7 cm.) Total score: 8/8 Single live fetus in cephalic presentation. heart rate 141 beats per minute. Posterior placenta without previa or abruption Biophysical profile score 8/8 corresponding to an LEVAR of 10/28/24 IMPRESSION: Biophysical profile score: 8/8
== END 2024-10-09 09:43 | disposition home or self-care (01) ==
LOC: LDRP 07:54
PROVIDERS: ADMIT Obstetrics & Gynecology; ATTEND Obstetrics & Gynecology
DX: O26.643 Intrahepatic cholestasis of pregnancy, third trimester (principal); Z98.890 Other specified postprocedural states; Z79.899 Other long term (current) drug therapy; Z3A.37 37 weeks gestation of pregnancy
CPT/HCPCS: 36415; 59025; 76819; 80053; 80307; 81001; 81002; 85025; 85610; 85730; 86780; 86803; 86850; 86900; 86901; G0378

== ENCOUNTER 2024-10-10 04:42 | Inpatient (IN) | payer MEDICAID ==
[~2024-10-10] VITALS: Ht 160 cm; Wt 83.9 kg
[2024-10-10] VITALS (15 sets, daily range): BP systolic 106–157; BP diastolic 0–86; PULSE 69–104; RESP 11–20; TEMP 97.4–98.8; O2SAT 93–98
[2024-10-10] MEDS: LACTATED RINGER'S 1,000 ML IV ONE (06:00)
[2024-10-10] MEDS: LACTATED RINGER'S 1,000 ML IV SCH (06:00)
--- NOTE | 2024-10-10 06:11 | DVHHP2 ---
OB CC & HPI Date Date of Admission: Oct 10, 2024 Patient Identification: : 3 Para: 2 EGA: 37.3 Chief Complaints: Reason for admission: section Indication for induction: medical complication (Cholestasis of ) Indication for : desires repeat History of Present Complaints 33y IUP 37.3 wk Hx of C/S x 2, CHTN on meds Scheduled by primary OB, Dr Vaughan for repeat C/S w/ BTL Medically indicated early term delivery due to Cholestasis of (on Actigal) Desires repeat C/S and Sterilization by BTL Past Medical History Cardiac: No pertinent Hx Pulmonary: No pertinent Hx Central Nervous System: No pertinent Hx GI: No pertinent Hx Hemotology/Oncology: No pertinent Hx Hepatobiliary: No pertinent Hx Psychiatric: No pertinent Hx Musculoskeletal: No pertinent Hx Rheumotologic: No pertinent Hx Infectious Disease: No peritnent Hx ENT: No pertinent Hx Renal/: No pertinent Hx Endocrine: No pertinent Hx Dermatology: No pertinent Hx Past Surgical History: OB History OB History Care: Good Care Ultrasounds: Normal mid trimester US Obstetrical Complications: Other (Cholestasis) Medical Complications: None Allergies: Coded Allergies: Lisinopril (Verified Allergy, Severe, 10/01/24) hives Pork (Porcine) Protein (Verified Allergy, Unknown, 10/10/24) Home Meds Reported Medications Ursodiol (Ursodiol) 300 Mg Cap, 300 MG PO TID for 30 Days, MG 09/14/24 Vit W/ Ferrous Fumara ( One Daily) Daily Tab, 1 TAB PO DAILY, #90 TAB 3 Refills 09/07/24 Nifedipine (PROCARDIA CAPSULE) 10 Mg Cp, 10 MG PO Q4HR, CAP 08/30/24 Vit W/ Ferrous Fumara () 1 Tab Tab, 1 TAB OR, TAB 08/06/21 Current Medications Current Medications Medications (Trade) Dose Ordered Sig/Meredith Route PRN Reason Start Time Stop Time Status Last Admin Lactated Ringer's 1,000 ml @ 125 mls/hr Q8H IV 10/10/24 05:15 10/10/24 06:00 Family & Social History Family/Social History RPR/VDRL: Negative GBS Status: Positive HBsAG: Negative Review of Systems Constitutional: No symptom reported Ears, Nose, & Throat: No symptom reported Eyes: No symptom reported Pulmonary/Respiratory: No symptom reported Cardiovascular: No symptom reported Gastrointestinal: No symptom reported Genitourinary: No symptom reported Musculoskeletal: No symptom reported Skin: Other (Pruritis) Psychiatric: No symptom reported Endocrine: No symptom reported Hemotologic/Lymphatic: No symptom reported OB Admission Exam Physical Exam Vitals: Afeb VS stable HEENT: NCAT Heart: Rhythm Normal Lungs: Clear Abdomen: Gravid Extremities: Normal Reflexes: Normal Pelvic Exam: Deferred Membranes: Intact Heart Rate: 130's Accelerations: Accelerations Present Decelerations: No Decelerations Short Term Variability: Present [facility] Variability: Average (6-25) Contractions on Admission: >10 Minutes Apart Intensity: Mild OB Plan Plan Admitting Diagnosis: Early Term IUP 37.3 wk Previous C/Section x 2 CHTN on medication Cholestasis of Desires sterilization Plan: Section, Other (Bilateral salpingectomy (BTL sterilization)) Other Plan: Informed consent obtained for surgery R/B/A of C/S and BTL reviewed, consent for poss blood transfusion Risks of surgery include: pain, scar, bleeding, infection, poss injury to bowel/bladder, adjacent organs Risks of sterilization include: future regret, risk of failure 1%, risk of ectopic . Understands procedure is PERMANENT and NOT reversible. Visit Coding OBGYN Date of Service: Oct 10, 2024 Billing Provider: ZOILA FERREIRA DO SEWER TAPPER Common Visit Codes: 93452-GWACEXM INP/OBS CARE (HIGH) SEWER TAPPER Procedure Codes: 43120-QHHOX @ TIME OF , 71040-OHZRV OB CARE,C- SECTION ZOILA ARELLANO DO Oct 10, 2024 06:11
[2024-10-10] MEDS ORDERED: KETOROLAC TROMETH 30 MG/ML 1ML VIAL ONE (08:56)
[2024-10-10] MEDS ORDERED: ONDANSETRON HCL 4 MG/2 ML VIAL ONE (08:56)
[2024-10-10] MEDS ORDERED: fentaNYL CITRATE 100 MCG/2 ML VL ONE (08:57)
[2024-10-10] MEDS ORDERED: MORPHINE SULF PF 5 MG/10 ML VIAL ONE (08:57)
[2024-10-10] MEDS: ceFAZolin 2 GM/D5W50ml 50 ML IV ONE (09:05)
[2024-10-10] MEDS ORDERED: ONDANSETRON HCL 4 MG/2 ML VIAL IV PRN (10:15)
[2024-10-10] MEDS ORDERED: NALOXONE HCL 0.4 MG/ML VIAL IV PRN (10:15)
[2024-10-10] MEDS ORDERED: HYDROmorphone HCL 2 MG/ML VL/or syr IV PRN (10:15)
[2024-10-10] MEDS: NALBUPHINE HCL 10 MG/1ml INJECTION IV ONE (10:15)
--- NOTE | 2024-10-10 10:59 | DVHOP2 ---
Operative Report - 2 Report Details Date: 10/10/24 Preop Diagnosis: Early Term IUP 37.3 wk, Previous C/S x 2 Cholestasis of Chronic HTN Obesity BMI > 30 Encounter for female sterilization Postop Diagnosis: Same Surgeon: Michael Ferreira DO Wafer Fabricator: Ailin Lee [facility] Anesthesiologist: Shashank Abdul CRNA Anesthesia: Regional Drains: None Consent: The patient was informed of the risks and benefits of the procedure. These include but are not limited to complications of anesthesia, postoperative infection, incomplete relief of symptoms, recurrence of symptoms, damage to blood vessels, nerves and tendons, deep venous thrombosis, pulmonary embolism and possible need for repeat surgery in the future. Complications: None Estimated Blood Loss: 400 mL Findings: Findings: Viable male infant in cephalic presentation. Apgars 8 and 9. Clear amniotic fluid. Intact placenta, three vessel cord. Normal uterus, fallopian tubes and ovaries bilaterally. Thin lower uterine segment. 2 layer uterine closure B/L total salpingectomy Indications for Surgery: As above Name of Procedure Performed 1. Repeat low transverse section delivery via Pfannensteil skin incision 2. Sterilization by Bilateral Salpingectomy Procedure Details Procedure Details: TECHNICAL PROCEDURE: After informed consent was obtained, the patient was taken to the operating room where her epidural anesthesia was found to be adequate. She was placed in the supine position with a slight leftward tilt. She was sterilely prepped and draped in usual fashion. A Pfannenstiel skin incision was made. The scar developed sharply to the underlying layer of fascia. The fascia was incised in the midline and extended laterally by sharp dissection. The rectus muscles were bluntly dissected off the rectus fascia and entry into the peritoneal cavity was performed bluntly. The peritoneal incision was extended superiorly and inferiorly with good visualization of the bladder. The Mikie- O retractor was placed into the incision.The vesicouterine peritoneum was sharply dissected with Metzenbaum scissors and a bladder flap created digitally. Using a second scalpel, the lower uterine segment was incised in a low transverse fashion. The incision was manually extended using digital technique. The membranes were rupture, with noted clear fluid. The baby was found to be cephalica, occiput anterior. The baby was delivered atraumatically. After 60 seconds, the cord was clamped and cut and the baby handed off to awaiting pediatric team. Cord blood was obtained. The placenta was then spontaneously delivered, intact. The uterus was exteriorized and cleared of all clots and debris using moist laparotomy sponges. The uterine incision was repaired with #1 PDS Stratafix spiral in 2 layers. Excellent tissue approximation and hemostasis was noted. The left fallopian tube was identified and traced to the fibriated end. The left fallopian tube was dissected off the mesosalpinx with ligasure bipolar energy and amputated proximally at the cornual region of the uterus. No bleeding from the mesosalpinx noted. The right fallopian tube was similarly excised. The uterus was returned to the abdomen. The cul-de-sac and paracolic gutters were cleared of all blood clots and debris. Sterile water was used for irrigation. The irrigant was clear All instruments were removed from the patient's abdomen after hemostasis was confirmed. The lap and instrument counts were correct. I then proceeded to close the rectus fascia using #1 PDS in continuous running fashion. The subcutaneous tissue was then approximated with 2-0 plain gut and the skin closed in subcuticular fashion using 2-0 Stratafix Monocryl. A thin layer of Dermabond was then placed. After the Dermabond dried, the SYLKE dressing was placed over the incision. The patient tolerated the procedure well. Sponge, lap, needle counts were correct x4. INTRAOPERATIVE COMPLICATIONS: None. ESTIMATED BLOOD LOSS: 400 mL. POSTOPERATIVE CONDITION: Stable. SPECIMENS: Cord blood, placenta, Left and Right fallopian tubes MEDICATIONS: The patient received 2 grams of Ancef and IV pitocin after cord clamps Condition Stable Disposition Still a Patient Visit Coding OBGYN Date of Service: Oct 10, 2024 Billing Provider: MICHAEL FERREIRA DO NETTING INSPECTOR Common Visit Codes: PROCEDURE ONLY NETTING INSPECTOR Procedure Codes: 88832-MNIRE @ TIME OF , 48966-ZAUON OB CARE,C- SECTION MICHAEL ARELLANO DO Oct 10, 2024 10:59
[2024-10-10] MEDS ORDERED: ceFAZolin 1GM/50ML 50 ML IV SCH (11:15)
[2024-10-10] MEDS ORDERED: KETOROLAC TROMETH 30 MG/ML 1ML VIAL IV PRN (11:15)
[2024-10-10] MEDS: diphenhdrAMINE HCL 50 MG/1 ML VL IV PRN (11:52)
[2024-10-10] MEDS: ACETAMINOPHEN IV 1000 MG/100ML (10MG/ML) IV PRN (16:17)
[2024-10-10] MEDS: ceFAZolin 1GM/50ML 50 ML IV SCH (16:47)
[2024-10-11] VITALS (10 sets, daily range): BP systolic 103–150; BP diastolic 62–94; PULSE 67–81; RESP 15–18; TEMP 97.6–97.8; O2SAT 94–100
[2024-10-11] MEDS ORDERED: ACETAMINOPHEN IV 1000 MG/100ML (10MG/ML) IV PRN (01:00)
--- NOTE | 2024-10-11 06:20 | DVHPN2 ---
Progress Note Date Seen: Oct 11, 2024 Subjective POD#1 s/p Repeat C/S and Sterilization (B/L Salpingectomy) Doing well. Lochia minimal. Pain controlled. Tolerating PO well without N/V vital signs Vital Sign Date Time Temp Pulse Resp B/P (MAP) Pulse Ox O2 Delivery O2 Flow Rate FiO2 10/11/24 05:00 78 15 106/62 (77) 97 10/11/24 02:30 97.8 97.8 10/10/24 19:00 Room Air Total Intake and Output 10/10/24 10/10/24 10/11/24 15:00 23:00 07:00 Intake Total 1950 ml Output Total 700 ml 1675 ml 550 ml Balance -700 ml 275 ml -550 ml medications Current Medications Medications Dose Ordered Sig/Meredith Route Start Time Stop Time Status Last Admin Dose Admin Lactated Ringer's 1,000 ml @ 125 mls/hr Q8H IV 10/10/24 05:15 10/10/24 20:21 125 MLS/HR Diphenhydramine HCl 25 mg Q4HP PRN IV 10/10/24 10:15 10/10/24 11:52 25 MG Ondansetron HCl 4 mg Q4HP PRN IV 10/10/24 10:15 Ketorolac Tromethamine 15 mg Q8HPRN PRN IV 10/10/24 11:15 10/15/24 11:14 Nifedipine 30 mg DAILY PO 10/11/24 10:00 Cefazolin Sodium 50 ml @ 100 mls/hr Q8H IV 10/10/24 17:00 10/11/24 09:29 10/11/24 00:51 100 MLS/HR Acetaminophen 1,000 mg Q8HPRN PRN IV 10/11/24 01:00 10/11/24 11:14 Objective O: AFVSS Chest: heart and lung sounds normal. Abd soft, non-tender, fundus firm, BS, no rebound or guarding, Incision - dressing and incision clean, dry, intact Ext Neg Homans, Non-tender, edema Lochia - minimal Labs Reviewed Assessment/Plan POD#1 s/p Repeat C/S and BTL, doing well - Continue current supportive care - Ambulate - Pain control - possible D/C tomorrow if continues to meet all recovery milestones CHTN, on Procardia XL 30mg daily - BP's stable, asymptomatic - No evidence of superimposed pre-eclampsia - Continue current Tx Plan discussed with: Patient Visit Coding OBGYN Date of Service: Oct 11, 2024 Billing Provider: ZOILA FERREIRA DO ACADEMY DIRECTOR Common Visit Codes: [id number] INP/OBS CARE(MOD) ZOILA FERREIRA DO Oct 11, 2024 06:20
[2024-10-11] MEDS ORDERED: HYDR-4902 PO (06:37)
[2024-10-11] MEDS ORDERED: IBUP-1456 PO (06:37)
[2024-10-11] MEDS ORDERED: NIFE1TAB31 PO (06:37)
[2024-10-11] MEDS: ACETAMINOPHEN IV 1000 MG/100ML (10MG/ML) IV ONE (09:25)
[2024-10-11 09:48] LABS: Hematocrit 36.4 % (36.0-46.0); Hemoglobin 12.3 g/dL (12.2-16.2); Mean Corpuscular Hemoglobin 28.7 pg (28.0-32.0); Mean Corpuscular Volume 84.9 fL (80.0-100.0); Nucleated Red Blood Cells % 0.0 %
[2024-10-11] MEDS ORDERED: BISACODYL 10 MG RECT SUPP PR PRN (10:15)
[2024-10-11] MEDS: SIMETHICONE 80 MG CHEWABLE TABLET PO SCH (11:44)
[2024-10-11] MEDS: IBUPROFEN 800 MG TAB PO PRN (13:00)
[2024-10-11] MEDS: HYDROcodone-ACET 5/325MG TAB PO PRN (17:20)
[2024-10-11] MEDS: DOCUSATE SOD 100 MG CAP PO SCH (21:28)
[2024-10-12] MEDS: TETANUS-DIPTH-ACEL PERTUSSIS 0.5ML SYR Tdap IM ONE (01:11)
[2024-10-12 03:09] VITALS: BP 131/77; PULSE 75; RESP 17; TEMP 97.8; O2SAT 99
[2024-10-12 07:00] VITALS: BP 141/79; PULSE 79; RESP 16; TEMP 97.9; O2SAT 98
--- NOTE | 2024-10-12 07:11 | DVHDS2 ---
Physician Discharge Progress N Final Diagnosis: Term , delivered Repeat C/Section and BTL Secondary Diagnosis: Chronic HTN Operations or Procedures: Operations or Procedures 1. Repeat low transverse section delivery via Pfannensteil skin incision 2. Sterilization by Bilateral Salpingectomy Condition on Discharge: Stable Disposition: Home Discharge Instructions: Diet: Regular Activity: Light activity Activity comment: Pelvic rest x 6 wk Follow Up/Referral: [address] Vaughan Medications: see eRX for NORCO/Ibuprofen Follow Up Care: Discharge Statement: "Patient was advised to return to the ER or call 911 if any headaches, dizziness, shortness of breath, chest pain, abdominal pain, bleeding, fevers, or worsening of medical condition. Patient was counseled about treatment plan, medications, possible side effects, patientverbalized understanding. All questions were answered to the best of my ability. This discharge took greater then 30 minutes in planning, reviewing documentation, counseling the patient, and discussing with other team members." Visit Coding OBGYN Date of Service: Oct 12, 2024 Billing Provider: ZOILA FERREIRA DO GARAGE DOOR INSTALLER Common Visit Codes: 22843-HZA/OBS DISCH DAY <30MIN ZOILA FERREIRA DO Oct 12, 2024 07:11
[2024-10-12] MEDS: HYDROcodone-ACET 5/325MG TAB PO PRN (08:12)
[2024-10-12 09:30] VITALS: BP 138/72; PULSE 89; RESP 18; TEMP 97.8; O2SAT 99
== END 2024-10-12 11:15 | disposition home or self-care (01) | DRG 539 ==
LOC: LDRP 04:42 → UNDOADMIN 04:42 → LDRP 04:43 → UNDOADMIN 04:52 → LDRP 04:52
PROVIDERS: ADMIT Obstetrics & Gynecology; ATTEND Obstetrics & Gynecology
PROC: 0UB70ZZ Excision of Bilateral Fallopian Tubes, Open Approach (ICD-10-PCS; 2024-10-10)
PROC: 10D00Z1 Extraction of Products of Conception, Low, Open Approach (ICD-10-PCS; principal; 2024-10-10 09:08)
DX: O26.643 Intrahepatic cholestasis of pregnancy, third trimester (principal); K76.89 Other specified diseases of liver; Z37.0 Single live birth; O16.4 Unspecified maternal hypertension, complicating childbirth; O34.211 Maternal care for low transverse scar from previous cesarean delivery; O99.214 Obesity complicating childbirth; O99.824 Streptococcus B carrier state complicating childbirth; Z3A.37 37 weeks gestation of pregnancy; Z30.2 Encounter for sterilization
CPT/HCPCS: 36415; 85025; 90715; 94760; 94762; 96360; 96361; 96365; 96372; G0378; J0131; J1100; J1885; J2405; J2590